=== PATIENT | female | born 1975 | race African-American/Black ===

== ENCOUNTER 2016-11-06 12:38 | Day surgery (SDC) | payer OTHER ==
[~2016-11-06] VITALS: Ht 160 cm; Wt 92.5 kg
[2016-11-06 13:09] VITALS: Ht 160 cm; Wt 92.5 kg
[2016-11-06] MEDS ORDERED: IBUP-1542 PO (13:19)
[2016-11-06] MEDS ORDERED: FENTAnyl 50 MCG/ML VIAL ONE (14:46)
[2016-11-06] MEDS ORDERED: MIDAZOLAM 1 MG/ML 2 ML INJ ONE (14:46)
[2016-11-06] MEDS ORDERED: PROPOFOL 20 ML ONE (14:46)
[2016-11-06 15:03] VITALS: BP 114/70; PULSE 73; RESP 26
--- NOTE | 2016-11-06 15:29 | OPPN ---
Date/Time of Note Date/Time of Note DATE: 11/06/16 TIME: 15:23 Proc Note GI Free Text/Dictation Procedure Date: 11/06/2016 Preoperative Diagnosis: Constipation/colorectal cancer screening Postoperative Diagnosis: * 4 mm sessile polyp proximal rectum. Ablated * Moderate-sized internal hemorrhoids * Otherwise normal colonoscopy to cecum Plan: * High-fiber diet * Review pathology * Annual Hemoccult stool testing * Surveillance colonoscopy in 5 years * If constipation continues consider [place] or [place] Operation Performed: Colonoscopy Surgeon: Jericho Feng MD Water Project Engineer: None Second Credit Risk Manager: None Anesthesia/Sedation monitored anesthesia care/Dr. Abdi Tourniquet Time: NA Estimated Blood Loss: None Transfusion Required: No Specimens: Rectal polyp Grafts/Implants: None Tubes/Drains: NA Complications: None Pt. Condition Post Procedure: Stable Disposition: Home After informed consent, with the patient/relatives understanding the procedure, its indications and potential risks and complications, including but not limited to: Allergic reaction, bleeding, perforation, infection, and after all pertinent questions were answered to the patient's satisfaction, the patient/ relatives signed the witnessed informed consent. Following this, premedication was administered slowly IV push under careful cardiovascular and respiratory monitoring with pulse [employer], automatic blood pressure, and gambling monitor. Once the sedative effect was achieved, the patient was placed in the left lateral decubitus position, digital rectal examination was performed. A colonoscope was then introduced and advanced under visual control throughout all segments of the colon including: [the rectum, sigmoid, descending colon, splenic flexure, transverse colon, hepatic flexure, ascending colon and finally reaching the cecum which was clearly identified by transillumination, finger indentation and the ileocecal valve.] Careful examination of the mucosa of the lower gastrointestinal tract both on insertion as well as withdrawal of the instrument disclosed the following findings: Preparation quality: [Adequate], Rectal Examination: The anorectal area was visualized examined and digital rectal examination performed with the following findings: Small external hemorrhoids. Otherwise no evidence of perirectal disease, no masses.] Colonic mucosa: The mucosa of all segments of the colon was carefully examined and showed the following findings: There is a 4 mm sessile polyp in the rectum. Ablated with biopsy forceps. Moderate-sized internal hemorrhoids are present. Otherwise the examined mucosa appears within normal limits. There is no evidence of inflammatory changes, diverticular formation, other neoplasms, vascular malformation, or any other abnormality.] The instrument was then withdrawn, the patient tolerated the procedure well and was transferred out of the Endoscopy Suite awake and in good condition to continue recovery under observation. Procedure date: Nov 06, 2016 JERICHO FENG MD Nov 06, 2016 15:29
[2016-11-06 15:52] VITALS: BP 107/63; PULSE 66; RESP 14
== END 2016-11-06 16:41 | disposition home or self-care (01) ==
LOC: GIL 12:38
PROVIDERS: ATTEND Internal Medicine Gastroenterology
DX: K62.1 Rectal polyp (principal)
CPT/HCPCS: 45380; 88305; J2250; J3010; Z7610